=== PATIENT | female | born 1985 | race Caucasian/White ===

== ENCOUNTER 2018-04-12 13:02 | Emergency (ER) | payer OTHER ==
[~2018-04-12] VITALS: Ht 170.2 cm; Wt 74.3 kg
[~2018-04-12 13:02] MED LIST: AMOXICILLIN875 MG PO; AUGMENTIN875 MG PO; AURALGAN14.8 ML BOTH EARS; CYMBALTA60 MG PO; DOCUSATE SODIU100 MG PO; ENDOCET 5-3251 EACH PO; HYDROCODON-ACE1 EAC7 PO; IBUPROFEN800 MG PO; INDOCIN25 MG PO; METHADONE10 MG PO; MOBIC7.5 MG PO; MOTRIN800 MG PO; PRENATAL TABLE1 EAC3 PO; TYLENOL WITH C1 EACH PO; ULTRACET1 TABLET PO; ZOFRAN ODT4 MG PO; ZOFRAN ODT8 MG PO
[2018-04-12 14:28] LABS: HEMATOCRIT 35.9 % (36.0-46.0); HEMOGLOBIN 12.5 G/DL (11.9-15.5); MCH 31.3 PG (29.0-34.0); MCHC 34.8 G/DL (30.0-36.0); PLATELET COUNT 287 K/uL (156-360); RBC DIS.WIDTH-CV 12.5 % (11.8-14.6); RBC DIS.WIDTH-SD 41.2 % (39-53); RED BLOOD COUNT 3.99 M/uL (3.80-5.20); WHITE BLOOD COUNT 9.9 K/uL (4.1-10.2)
[2018-04-12 14:36] LABS: CHLORIDE 105 mEq/L (99-109); POTASSIUM 3.6 mEq/L (3.7-5.4); SODIUM 141 mEq/L (136-147)
[2018-04-12 14:37] LABS: GLUCOSE 92 mg/dL (70-99)
[2018-04-12 14:41] LABS: CREATININE 0.6 mg/dL (0.6-1.3); GFR ESTIMATE (CALCULATED) > 59 mL/min/
[2018-04-12 14:42] LABS: UREA NITROGEN (BUN) 10 mg/dL (9-23)
[2018-04-12 14:51] LABS: QUANTITATIVE HCG < 4.0 MIU/ML
[2018-04-12] MEDS ORDERED: AUGMENTIN875 MG PO (16:21)
[2018-04-12] MEDS ORDERED: PREDNISONE10 M1 PO (16:22)
[2018-04-12 16:27] VITALS: BP 95/55
== END 2018-04-12 16:46 | disposition home or self-care (01) ==
LOC: EME 13:02
PROVIDERS: Physician Assistant
DX: R59.0 Localized enlarged lymph nodes (principal); J03.90 Acute tonsillitis, unspecified; J32.9 Chronic sinusitis, unspecified
CPT/HCPCS: 70491; 80048; 84702; 85027; 87077; 87081; 87651 90; 99281; 99284; J1885